=== PATIENT | male | born 1945 | race Caucasian/White ===

== ENCOUNTER → 2016-10-12 | Outpatient (RCR) | payer MEDICARE, OTHER ==
[2016-09-14 14:29] LABS: BILIRUBIN,URINE NEGATIVE (NEGATIVE); KETONES,URINE NEGATIVE (NEGATIVE); LEUKOCYTE ESTERASE ,URINE NEGATIVE (NEGATIVE); NITRITE,URINE NEGATIVE (NEGATIVE); PH,URINE 7 (5-9); PROTEIN,URINE NEGATIVE (NEGATIVE); UROBILINOGEN,URINE NORMAL (NORMAL)
[2016-09-14 14:42] LABS: SQUAMOUS EPITHELIAL CELL,UR 0-2 /HPF
[~2016-10-12] MED LIST: ASPI-983 PO; CHOL20003 PO; CITA-105 PO; CITA40TA11 PO; CLOB15OI2 TP; CYAN10007 PO; FERR-84 PO; FERR256T PO; HYDR-3820 PO; HYDR1TAB86 PO; IPRA4AER IH; LISI1TAB10 PO; MELO-195 PO; METF500T8 PO; MTF500T PO; OXYC-12 PO; PANT20TA2 PO; PANT40TA2 PO; TRAM50TA2 PO
== END | disposition home or self-care (01) ==
LOC: ONC 07-14 14:47
PROVIDERS: ATTEND Radiology Radiation Oncology
DX: Z51.0 Encounter for antineoplastic radiation therapy (principal); C61 Malignant neoplasm of prostate
CPT/HCPCS: 77300; 77301; 77307; 77334; 77336; 77338; 77385; 81000; 99214

== ENCOUNTER 2016-11-02 14:08 | Outpatient (RCR) | payer MEDICARE | END 2016-11-14 | disposition home or self-care (01) | LOC: ONC 14:08 | PROVIDERS: ATTEND Radiology Radiation Oncology | DX: Z51.0 Encounter for antineoplastic radiation therapy (principal); C61 Malignant neoplasm of prostate | CPT/HCPCS: 77336; 77385 ==

== ENCOUNTER → 2016-12-31 | Outpatient (CLI) | payer MEDICARE | LOC: EDSTATUS 11-15 15:31 → ONC 15:32 | PROVIDERS: ATTEND Radiology Radiation Oncology | DX: C61 Malignant neoplasm of prostate (principal) | CPT/HCPCS: 99213 ==

== ENCOUNTER → 2017-04-21 | Outpatient (CLI) | payer SELFPAY ==
[~2017-04-21] MED LIST changes: +GADOBUTROL 7.5 MMOL/7.5 ML (GADAVIST) VIAL IV ONE
[2017-04-21 09:32] LABS: CREATININE SERUM 1.2 MG/DL (0.60-1.30)
--- NOTE | 2017-04-21 11:51 | Diagnostic Imaging Report ---
PROCEDURE: MRI lumbar spine with and without contrast. TECHNIQUE: Multiplanar, multisequence MRI of the lumbar spine was performed with and without contrast. INDICATION: Prior lumbar spine surgery and prior T12 vertebral body fracture. Patient complains of continued low back pain. COMPARISON: Correlation is made with prior MRI from 05/05/2012. FINDINGS: Curvature of the lumbar spine is normal. Postsurgical changes are again noted with posterior instrumented fusion at T11 through L1 level. The fusion does transfix the T12 vertebral body fracture seen on prior MRI. No further loss of stature of the T12 vertebral body is seen. The remaining lumbar vertebrae demonstrate normal stature. There is a Schmorl's node involving the inferior endplate of the L3 vertebral body, new since prior MRI from 2012. There also is edema within the L3 vertebral body, new since prior exam. Features are suggestive of an acute Schmorl's node which may be contributing to the patient's pain. This does demonstrate some mild contrast enhancement. No other regions of abnormal enhancement are identified. The conus appears unremarkable at the L1 level. T12-L1: Disc/osteophyte complex is present but no significant central canal or neuroforaminal stenosis is seen. L1-L2: Central canal is widely patent. Neural foramina are moderately narrowed bilaterally. L2-L3: Central canal is patent. There is ligamentous thickening and facet changes present. No significant neuroforaminal narrowing is seen. L3-L4: Hypertrophic facet changes and ligamentous thickening is seen. There is broad-based disc/osteophyte complex present resulting in moderate bilateral neuroforaminal narrowing as well as bilateral lateral recess narrowing. L4-L5: There are hypertrophic facet changes present. The central canal remains patent. Broad-based disc/osteophyte complex narrows the lateral recesses bilaterally. Only mild neuroforaminal narrowing is present. L5-S1: Degenerative facet changes are present. Central canal is widely patent. The neural foramina are patent. IMPRESSION: 1. Treated T12 vertebral body fracture with posterior instrumented fusion from T11 to L1. No further loss of stature of the T12 vertebral body is seen. 2. Mild generalized spondylosis and facet arthropathy with mild multilevel lateral recess and neuroforaminal narrowing described level by level above. No significant central canal stenosis is seen. 3. Interval development of a Schmorl's node involving the inferior endplate of L3 vertebral body since the MRI from April 2012. There is some edema within the L3 vertebral body, likely owing to an acute Schmorl's node, which can produce pain. No other significant abnormality is identified. Dictated by: Dictated on workstation # [id number]
== END ==
LOC: RAD 08:21
DX: M48.061 Spinal stenosis, lumbar region without neurogenic claudication (principal); M47.27 Other spondylosis with radiculopathy, lumbosacral region; Z87.81 Personal history of (healed) traumatic fracture; Z98.1 Arthrodesis status
CPT/HCPCS: 36415; 72158; 82565; 84520

== ENCOUNTER → 2018-01-14 | Outpatient (CLI) | payer MEDICARE ==
[~2018-01-14] MED LIST changes: -GADOBUTROL 7.5 MMOL/7.5 ML (GADAVIST) VIAL IV ONE
--- NOTE | 2018-01-14 11:17 | Diagnostic Imaging Report ---
INDICATION: Cough x1 month. Shortness of breath x6 months.. TECHNIQUE: Two view chest 11:16 AM CORRELATION STUDY: None FINDINGS: The heart size, mediastinal configuration and pulmonary vasculature are within normal limits. The lungs are clear with no consolidating infiltrate. There is no significant pleural effusion or pneumothorax. Thoracolumbar spinal fixation hardware transfixing a compressed vertebral body again demonstrated. IMPRESSION: 1. No radiographic evidence for acute abnormality of the chest. Dictated by: Dictated on workstation # [id number]
== END ==
LOC: RAD 10:46
PROVIDERS: ATTEND Family Medicine
DX: R06.02 Shortness of breath (principal); R05 Cough; Z72.0 Tobacco use
CPT/HCPCS: 71046

== ENCOUNTER 2018-02-14 05:52 | Outpatient (CLI) | payer MEDICARE ==
[~2018-02-14] VITALS: Ht 168.9 cm; Wt 68.0 kg
[2018-02-14] MEDS ORDERED: TRAM50TA2 PO (13:47)
[2018-02-14] MEDS ORDERED: METF-397 PO (13:47)
[2018-02-14] MEDS ORDERED: LISI1TAB10 PO (13:47)
[2018-02-14] MEDS ORDERED: CYAN100021 PO (13:47)
== END 2018-02-14 13:49 | disposition home or self-care (01) ==
LOC: PREOP 05:52
PROVIDERS: ATTEND Surgery
DX: Z01.818 Encounter for other preprocedural examination (principal)

== ENCOUNTER 2018-02-21 08:23 | Day surgery (SDC) | payer MEDICARE ==
[~2018-02-21] VITALS: Ht 168.9 cm; Wt 68.0 kg
[~2018-02-21 08:23] MED LIST changes: +CYAN100021 PO; +METF-397 PO
[2018-02-21] MEDS ORDERED: NS IV 500 ML 500 ML ONE (08:31)
[2018-02-21] MEDS ORDERED: fentaNYL INJECTION 100 MCG/2 ML AMP ONE (08:37)
[2018-02-21] MEDS ORDERED: MIDAZOLAM 2 MG/2 ML (VERSED) VIAL ONE ×4 (08:37)
[2018-02-21] MEDS ORDERED: HURRICAINE EXT TUBE (BENZOCAINE) ONE (08:38)
[2018-02-21] MEDS ORDERED: NS IV 500 ML 500 ML IV PRN (08:47)
--- NOTE | 2018-02-21 08:50 | Conscious Sedation/ASA ---
Conscious Sedation Pre-Proced Time 08:50 ASA Score 2 For ASA 3 and 4: Consider anesthesia and medical clearance. Also, for patients with a history of failed moderate sedation consider anesthesia. Airway Lungs Heart ASA score ASA 1: a normal healthy patient ASA 2: a patient with a mild systemic disease (mid diabetes, controlled hypertension, obesity ASA 3: a patient with a severe systemic disease that limits activity (angina , COPD, prior Myocardial infarction) ASA 4: a patient with an incapacitating disease that is a constant threat to life (CHF, renal failure) ASA 5: a moribund patient not expected to survive 24 hrs. (ruptured aneurysm) ASA 6: a declared brain patient whose organs are being harvested. For emergent operations, add the letter E after the classification Mallampati Classification Grade 1 Sedation Plan Discussed options with patient/fam The patient is an appropriate candidate to undergo the planned procedure, sedation, and anesthesia. The patient immediately re-assessed prior to indication. AAMIR GARCIA MD Feb 21, 2018 08:50
--- NOTE | 2018-02-21 08:50 | History & Physicial ---
History of Present Illness History of Present Illness Reason for visit/HPI To undergo an upper endoscopy with possible balloon dilatation regarding nausea and dysphagia. Date of Admission 02/21/18 Date Seen by a Provider: Feb 21, 2018 Time Seen by a Provider: 08:48 I consulted on this patient on 02/21/18 08:48 Attending Physician Aamir Dumont MD Admitting Physician Renae Fatima MD Consult Allergies and Home Medications Allergies Coded Allergies: No Known Drug Allergies (Verified , 07/26/07) Home Medications Albuterol/Ipratropium 4 Gm Aero, 1 PUFF IH QID PRN for SHORTNESS OF BREATH, ( Reported) Aspirin 81 Mg Tablet.dr, 81 MG PO DAILY, (Reported) Cholecalciferol (Vitamin D3) 2,000 Unit Capsule, 2,000 UNIT PO DAILY, (Reported) Citalopram Hydrobromide 40 Mg Tablet, 20 MG PO HS, (Reported) TAKES 1/2 (40MG) TABLET Clobetasol Propionate 15 Gm Oint...g., TP BID PRN for DRY SKIN, (Reported) APPLY TO HANDS AND FEET Cyanocobalamin (Vitamin B-12) 1,000 Mcg/15 Ml Liquid, 1,000 MCG PO DAILY, ( Reported) Ferrous Sulfate 325 Mg Tablet, 325 MG PO DAILY, (Reported) Hydrocodone/Acetaminophen 1 Each Tablet, 1 TAB PO Q4H PRN for PAIN, (Reported) Lisinopril/Hydrochlorothiazide 1 Each Tablet, 1 EACH PO DAILY, (Reported) Metformin HCl 500 Mg Tablet, 500 MG PO DAILY, (Reported) Pantoprazole Sodium 40 Mg Tablet.dr, 40 MG PO BID, (Reported) Tramadol HCl 50 Mg Tablet, 50 MG PO QID PRN for PAIN-MILD, (Reported) Patient Home Medication List Home Medication List Reviewed: Yes Past Gawvwdm-Zcyhwe-Yufamb Hx Patient Social History Marrital Status: Employed/Student: retired Former Smoker, Quit: Feb 14, 2003 Type Used: Smokeless Tobacco Recent Foreign Travel: No Contact w/other who traveled: No Recent Hopitalizations: No Immunizations Up To Date Date of Pneumonia Vaccine: Nov 18, 2015 Date of Influenza Vaccine: Nov 17, 2017 Seasonal Allergies Seasonal Allergies: No Surgeries Yes (LEFT EYE CATARACT,APPY,IRENE,GASTRIC BYPASS 2004) Respiratory No Cardiovascular Yes Hypertension Neurological No Genitourinary No Gastrointestinal Yes (nausea/dysphagia/wt loss) Ulcer Musculoskeletal Yes (PAIN IN SHOULDERS) Chronic Back Pain Endocrine History of Endocrine Disorders: Yes Endocrine Disorders: Diabetes, Non-Insulin dep HEENT History of HEENT Disorders: No HEENT Disorders: Cataract Cancer No Prostate Psychosocial History of Psychiatric Problem: No Integumentary History of Skin or Integumenta: No Blood Transfusions History of Blood Disorders: No Review of Systems Constitutional: no symptoms reported EENTM: no symptoms reported Respiratory: no symptoms reported Cardiovascular: no symptoms reported Gastrointestinal: see HPI Genitourinary: no symptoms reported Musculoskeletal: joint pain Skin: no symptoms reported Psychiatric/Neurological: No Symptoms Reported Physical Exam Vital Signs Capillary Refill : Height, Weight, BMI Height: 5'6.50" Weight: 150lbs. 0.0oz. [id number]; 23.9 BMI Method:Stated General Appearance: No Apparent Distress Respiratory: Lungs Clear Cardiovascular: Regular Rate, Rhythm Gastrointestinal: Non Tender, Soft Neurologic/Psychiatric: Alert, Oriented x3 Skin: Warm/Dry Assessment/Plan Assessment and Plan Gentleman with nausea, weight loss and dysphagia. For upper endoscopy with possible balloon dilatation Admission Diagnosis Admission Status: Other (Outpt Proc) AAMIR DUMONT MD Feb 21, 2018 08:50
[2018-02-21] MEDS ORDERED: MIDAZOLAM 2 MG/2 ML (VERSED) VIAL IVP ONE (09:00)
[2018-02-21] MEDS ORDERED: HURRICAINE EXT TUBE (BENZOCAINE) XX PRN (09:00)
[2018-02-21] MEDS ORDERED: fentaNYL INJECTION 100 MCG/2 ML AMP IVP ONE (09:00)
[2018-02-21 09:03] VITALS: BP 134/64
--- NOTE | 2018-02-21 09:16 | Endo Procedure Record ---
Endo Procedure Report Date of Procedure Last Colonoscopy: Yes Feb 21, 2018 Surgeon (s) AAMIR GARCIA MD Post Procedure/Op Diagnosis Normal configuration of gastric bypass. No stricture Procedure Performed EGD with biopsy of gastric pouch for H. pylori Description of Procedure Anesthesia Type: Conscious Sedation Specimen(s) collected/removed Gastric mucosa Description of the Procedure Indication for the procedure: This gentleman had undergone gastric bypass to manage morbid obesity, about 12 years ago, achieving excellent results. He came in for an upper endoscopy to evaluate intermittent nausea and dysphagia. Informed consent was obtained after reviewing the procedure in detail. Description of the procedure: He was placed in left lateral decub disposition and his vital signs were monitored. Conscious sedation was achieved using Versed and fentanyl. The flexible gastroscope was introduced down the esophagus , past the gastric pouch into the jejunum here There was no abnormality; specifically, there was no anastomotic stricture. Due to symptoms, biopsy of the gastric pouch was obtained for H. pylori. He tolerated the procedure well and was taken back to the nursing area in a stable condition. Impression: Previous gastric bypass. No anatomic abnormalities identified. Copy Copies To 1: SUZANNE ROSADO MD, XAVIER M MD Feb 21, 2018 09:16
--- NOTE | 2018-02-21 09:18 | Discharge Inst-Simple/Standard ---
Discharge Inst-Standard Discharge Medications New, Converted or Re-Newed RX: Other Patient Instructions/Follow Up Plan of Care/Instructions/FU: Follow up with his primary Activity as Tolerated: Yes Discharge Diet: No Restrictions AAMIR GARCIA MD Feb 21, 2018 09:18
[2018-02-21 09:40] VITALS: BP 117/64
[2018-02-21 10:00] VITALS: BP 134/73
[2018-02-21 10:28] VITALS: BP 134/73
== END 2018-02-21 10:10 | disposition home or self-care (01) ==
LOC: ENDO 08:23
PROVIDERS: ATTEND Surgery
DX: R13.10 Dysphagia, unspecified (principal); R11.2 Nausea with vomiting, unspecified; E11.9 Type 2 diabetes mellitus without complications; I10 Essential (primary) hypertension; F17.200 Nicotine dependence, unspecified, uncomplicated; Z98.84 Bariatric surgery status; Z79.899 Other long term (current) drug therapy; Z85.46 Personal history of malignant neoplasm of prostate; Z79.82 Long term (current) use of aspirin; Z79.84 Long term (current) use of oral hypoglycemic drugs

== ENCOUNTER → 2020-10-01 | Outpatient (CLI) | payer MEDICARE, OTHER ==
[~2020-10-01] MED LIST changes: +ACHYD1T PO; +ASPI-1238 PO; -ASPI-983 PO; -HYDR-3820 PO; +LISI1TAB26 PO; +METF-865 PO; -METF500T8 PO; +TRM50T PO
--- NOTE | 2020-10-01 12:48 | Diagnostic Imaging Report ---
EXAMINATION: Chest 2 view HISTORY: SOB POST COVID 19 COMPARISON: 01/14/2018 FINDINGS: Heart size and pulmonary vasculature are normal. The lungs are clear without consolidation, pleural effusion, or pneumothorax. Surgical changes from spinal fusion. There are calcifications of the aorta. IMPRESSION: 1. No acute radiographic abnormality in the chest. Dictated by: Dictated on workstation # [id number]
== END ==
LOC: RAD 11:42
PROVIDERS: ATTEND Family Medicine
DX: R06.02 Shortness of breath (principal); Z86.16 Personal history of COVID-19
CPT/HCPCS: 71046

== ENCOUNTER 2020-10-26 18:48 | Emergency (ER) | payer MEDICARE, OTHER ==
[~2020-10-26] VITALS: Ht 169 cm; Wt 68.0 kg
[2020-10-26 19:39] LABS: BASOPHILS # (AUTO) 0.1 10^3/uL (0.0-0.1); BASOPHILS % (AUTO) 1 % (0-10); EOSINOPHILS # (AUTO) 0.2 10^3/uL (0.0-0.3); EOSINOPHILS % (AUTO) 2 % (0-10); HEMATOCRIT 41 % (40-54); HEMOGLOBIN 13.4 g/dL (13.3-17.7); LYMPHOCYTES # (AUTO) 1.5 10^3/uL (1.0-4.0); LYMPHOCYTES % (AUTO) 19 % (12-44); MEAN CORPUSCULAR HEMOGLOBIN 29 pg (25-34); MEAN CORPUSCULAR HGB CONC 33 g/dL (32-36); MEAN CORPUSCULAR VOLUME 90 fL (80-99); MEAN PLATELET VOLUME 11.6 fL (9.0-12.2); MONOCYTES # (AUTO) 0.9 10^3/uL (0.0-1.0); MONOCYTES % (AUTO) 11 % (0-12); NEUTROPHILS # (AUTO) 5.3 10^3/uL (1.8-7.8); NEUTROPHILS % (AUTO) 66 % (42-75); PLATELET COUNT 296 10^3/uL (130-400)
--- NOTE | 2020-10-26 19:47 | Diagnostic Imaging Report ---
EXAMINATION: CT head without contrast. TECHNIQUE: Multiple contiguous axial images were obtained through the brain without the use of intravenous contrast. All CT scans use one or more of the following dose optimizing techniques: automated exposure control, MA and/or KvP adjustment based on patient size and exam type or iterative reconstruction. HISTORY: Right-sided facial pain. Right facial droop. Concern for STROKE. COMPARISON: None available. FINDINGS: No large acute territorial ischemia, mass or hemorrhage. No midline shift or mass effect. The ventricles, cortical sulci and basilar cisterns are patent and unremarkable. The orbits are normal. Paranasal sinuses are normal. Mastoid air cells are clear. No soft tissue abnormality is seen. No osseus lesion or fracture is seen. IMPRESSION: No large acute territorial ischemia, mass or hemorrhage. Dictated by: Dictated on workstation # [id number]
[2020-10-26 19:54] LABS: ERYTHROCYTE SEDIMENTATION RATE 14 MM/HR (0-30)
--- NOTE | 2020-10-26 19:54 | ED Neurological Problem ---
General Chief Complaint: Facial Problems Stated Complaint: R SIDED FACIAL PAIN Nursing Triage Note: Patient ambulatory to ER with c/o right facial pain and unable to close the right eye x 3 days. Patient describes pain as constant and dull. He does have drooping to the right side of mouth. Pupils are equal. Source: patient, old records Exam Limitations: no limitations History of Present Illness Date Seen by Provider: Oct 26, 2020 Time Seen by Provider: 19:05 Initial Comments This 74-year-old gentleman presents to the emergency room with primary complaint of right-sided facial headache that radiates from the temporal region down around the ear toward the lower occiput and superior neck as well as inability to completely close his right eye. He was out mowing 3 acres today and came into eat supper and drink a few beers when he noticed the facial weakness between 1529 and 1629. He has had some discomfort on the right side of his face for a few days. 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 He denies any numbness or weakness of any other body part. Vision appears unaffected. He appears to have some subtle weakness of the right forehead and loss of wrinkles on the right lateral and upper forehead. Allergies and Home Medications Allergies Coded Allergies: No Known Drug Allergies (Verified , 07/26/07) Patient Home Medication List Home Medication List Reviewed: Yes Albuterol/Ipratropium (Combivent Respimat Inhal Oneill) 4 Gm Aero, 1 PUFF IH QID PRN for SHORTNESS OF BREATH, (Reported) Entered as Reported by: JOHNNA DUFFY on 01/29/16928 Aspirin (Aspirin EC) 81 Mg Tablet.dr, 81 MG PO DAILY, (Reported) Entered as Reported by: JOHNNA DUFFY on 01/29/16928 Cholecalciferol (Vitamin D3) (Vitamin D3) 2,000 Unit Capsule, 2,000 UNIT PO DAILY, (Reported) Entered as Reported by: JOHNNA DUFFY on 01/29/16928 Citalopram Hydrobromide (Citalopram HBr) 40 Mg Tablet, 20 MG PO HS, (Reported) Entered as Reported by: JOHNNA DUFFY on 01/29/16928 Clobetasol Propionate (Clobetasol Propionate) 15 Gm Oint...g., TP BID PRN for DRY SKIN, (Reported) Entered as Reported by: JOHNNA DUFFY on 01/29/16928 Cyanocobalamin (Vitamin B-12) (Liquid B12) 1,000 Mcg/15 Ml Liquid, 1,000 MCG PO DAILY, (Reported) Entered as Reported by: ASA PARKER on 02/14/181346 Ferrous Sulfate (Iron) 325 Mg Tablet, 325 MG PO DAILY, (Reported) Entered as Reported by: JOHNNA DUFFY on 01/29/16928 Gabapentin (Neurontin) 300 Mg Capsule, 300 MG PO TID Prescribed by: MORGAN LINDO on 10/26/202043 Hydrocodone Bit/Acetaminophen (HYDROcodone/APAP 10/325 TABLET) 1 Each Tablet, 1 TAB PO Q4H PRN for PAIN, (Reported) Entered as Reported by: JOHNNA DUFFY on 01/29/16928 Lisinopril/Hydrochlorothiazide (Lisinopril-Hctz 20-25 mg Tab) 1 Each Tablet, 1 EACH PO DAILY, (Reported) Entered as Reported by: ASA PARKER on 02/14/181346 Metformin HCl (Metformin HCl) 500 Mg Tablet, 500 MG PO DAILY, (Reported) Entered as Reported by: ASA PARKER on 02/14/181346 Pantoprazole Sodium (Protonix) 40 Mg Tablet.dr, 40 MG PO BID, (Reported) Entered as Reported by: JOHNNA DUFFY on 01/29/16928 Prednisone (Prednisone) 20 Mg Tab, 40 MG PO DAILY Prescribed by: MORGAN LINDO on 10/26/202043 Tramadol HCl (Tramadol HCl) 50 Mg Tablet, 50 MG PO QID PRN for PAIN-MILD, (Reported) Entered as Reported by: ASA PARKER on 02/14/181346 Valacyclovir HCl (Valacyclovir) 1,000 Mg Tablet, 1,000 MG PO TID Prescribed by: MORGAN LINDO on 10/26/202043 Review of Systems Review of Systems Constitutional: no symptoms reported Eyes: See HPI Ears, Nose, Mouth, Throat: no symptoms reported Respiratory: no symptoms reported Cardiovascular: no symptoms reported Gastrointestinal: no symptoms reported Genitourinary: no symptoms reported Musculoskeletal: no symptoms reported Skin: no symptoms reported Psychiatric/Neurological: See HPI Endocrine: No Symptoms Reported Hematologic/Lymphatic: No Symptoms Reported Past Pqfksxh-Movwpr-Iacvqn Hx Patient Social History Tobacco Use?: No Smoking Status: Former Smoker Smokeless Tobacco Frequency: Never a User Use of E-Cig and/or Vaping dev: No Use of E-Cig and/or Vaping Brady: Never a User Substance use?: No Alcohol Use?: Yes Alcohol type: Beer Pt feels they are or have been: No Seasonal Allergies Seasonal Allergies: No Past Medical History Surgery/Hospitalization HX: History of back surgery and gastric bypass, takes medications Diabetes, HTN, and depression Surgeries: Yes (LEFT EYE CATARACT,APPY,IRENE,GASTRIC BYPASS 2004) Abdominal (Gastric bypass), Cardiac (Cardiac cath 2015 without intervention), Orthopedic (Back surgery) Respiratory: No Cardiac: Yes Coronary Artery Disease (Mild disease by cath 2015), Hypertension Neurological: Yes (Remote history of Trotter's palsy which he believes was on the left) Genitourinary: No Gastrointestinal: Yes (nausea/dysphagia/wt loss) Ulcer Musculoskeletal: Yes (PAIN IN SHOULDERS) Chronic Back Pain Endocrine: Yes Diabetes, Non-Insulin dep HEENT: Yes Cataract Cancer: Yes Prostate Psychosocial: No Integumentary: No Blood Disorders: No Physical Exam Vital Signs Vital Signs - First Documented 10/26/20 18:52 Temp 36.2 Pulse 79 Resp 16 B/P (MAP) 137/67 (90) Pulse Ox 95 O2 Delivery Room Air Capillary Refill : Less Than 3 Seconds Height, Weight, BMI Height: 5'6.50" Weight: 150lbs. 0.0oz. 68.267570ug; 23.00 BMI Method:Stated General Appearance: WD/WN, no apparent distress HEENT: PERRL/EOMI, normal ENT inspection, TMs normal, other (Mild tenderness of the right face in the temporal region. No mastoid tenderness. No swelling or erythema noted. Temporal arteries are palpable and equal bilaterally with no significant tenderness focally over the artery) Neck: normal inspection Respiratory: lungs clear, normal breath sounds, no respiratory distress Cardiovascular: regular rate, rhythm, no edema, no murmur Gastrointestinal: soft; No distended Extremities: normal inspection Neurologic/Psychiatric: alert, normal mood/affect, oriented x 3 Crainal Nerves: normal hearing, normal speech, PERRL, facial droop (Right side including weakness and loss of wrinkles in the right forehead) Coordination/Gait: normal finger to nose, normal gait Motor/Sensory: no sensory deficit Skin: normal color, warm/dry Progress/Results/Core Measures Results/Orders Lab Results Laboratory Tests Test 10/26/20 18:57 Range/Units White Blood Count 8.0 4.3-11.0 10^3/uL Red Blood Count 4.56 4.30-5.52 10^6/uL Hemoglobin 13.4 13.3-17.7 g/dL Hematocrit 41 40-54 % Mean Corpuscular Volume 90 80-99 fL Mean Corpuscular Hemoglobin 29 25-34 pg Mean Corpuscular Hemoglobin Concent 33 32-36 g/dL Red Cell Distribution Width 13.9 10.0-14.5 % Platelet Count 296 130-400 10^3/uL Mean Platelet Volume 11.6 9.0-12.2 fL Immature Granulocyte % (Auto) 0 % Neutrophils (%) (Auto) 66 42-75 % Lymphocytes (%) (Auto) 19 12-44 % Monocytes (%) (Auto) 11 0-12 % Eosinophils (%) (Auto) 2 0-10 % Basophils (%) (Auto) 1 0-10 % Neutrophils # (Auto) 5.3 1.8-7.8 10^3/uL Lymphocytes # (Auto) 1.5 1.0-4.0 10^3/uL Monocytes # (Auto) 0.9 0.0-1.0 10^3/uL Eosinophils # (Auto) 0.2 0.0-0.3 10^3/uL Basophils # (Auto) 0.1 0.0-0.1 10^3/uL Immature Granulocyte # (Auto) 0.0 0.0-0.1 10^3/uL Erythrocyte Sedimentation Rate 14 0-30 MM/HR Sodium Level 141 135-145 MMOL/L Potassium Level 3.4 L 3.6-5.0 MMOL/L Chloride Level 104 98-107 MMOL/L Carbon Dioxide Level 22 21-32 MMOL/L Anion Gap 15 H 5-14 MMOL/L Blood Urea Nitrogen 21 H 7-18 MG/DL Creatinine 1.34 H 0.60-1.30 MG/DL Estimat Glomerular Filtration Rate 52 BUN/Creatinine Ratio 16 Glucose Level 93 70-105 MG/DL Calcium Level 9.5 8.5-10.1 MG/DL Corrected Calcium 9.5 8.5-10.1 MG/DL Total Bilirubin 0.3 0.1-1.0 MG/DL Aspartate Amino Transf (AST/SGOT) 11 5-34 U/L Alanine Aminotransferase (ALT/SGPT) 10 0-55 U/L Alkaline Phosphatase 74 40-136 U/L C-Reactive Protein High Sensitivity 0.11 0.00-0.50 MG/DL Total Protein 6.6 6.4-8.2 GM/DL Albumin 4.0 3.2-4.5 GM/DL Serum Alcohol < 10 <10 MG/DL My Orders Orders - MORGAN CLIFTON MD Ct Head Wo-R/O Stroke (10/26/20 19:32) Alcohol (10/26/20 19:32) Cbc With Automated Diff (10/26/20 19:32) Hs C Reactive Protein (10/26/20 19:32) Erythrocyte Sedimentation Rate (10/26/20 19:32) Ed Iv/Invasive Line Start (10/26/20 19:32) Comprehensive Metabolic Panel (10/26/20 20:04) Prednisone Tablet (Deltasone Tablet) (10/26/20 20:45) Acyclovir Capsule/Tablet (Zovirax Caps (10/26/20 20:37) Gabapentin Capsule/Tablet (Neurontin Cap (10/26/20 20:45) Medications Given in ED Current Medications Medications Dose Ordered Sig/Yvonne Route Start Time Stop Time Status Last Admin Dose Admin Gabapentin 300 mg ONCE ONCE PO 10/26/20 20:45 10/26/20 20:46 DC 10/26/20 20:50 300 MG Prednisone 40 mg ONCE ONCE PO 10/26/20 20:45 10/26/20 20:46 DC 10/26/20 20:48 40 MG Vital Signs/I&O 10/26/20 18:52 Temp 36.2 Pulse 79 Resp 16 B/P (MAP) 137/67 (90) Pulse Ox 95 O2 Delivery Room Air Blood Pressure Mean: 90 Progress Progress Note #1: Time: 19:55 Progress Note Patient was seen and examined. Symptoms seem most consistent with a Trotter's palsy, especially with apparent weakness and loss of wrinkles on the right forehead. However, there is a pain associated with this on the right side. We will investigate further with basic labs including ESR as well as CT scan of the head. I anticipate treating for Trotter's palsy. Progress Note #2: Time: 20:54 Progress Note Work-up was relatively unremarkable. Presentation is convincing for Trotter's palsy. I discussed risks of prednisone therapy. I am prescribing 40 mg a day with the first dose being given in the ER. I am also prescribing acyclovir. Patient is to watch his blood sugars closely while on prednisone. We discussed ice safety associated with Trotter's palsy. See discharge instructions for further discussion. Diagnostic Imaging Diagonstic Imaging: CT Plain Films/CT/US/NM/MRI: head Comments CT head viewed by me and report reviewed. See report below: NAME: ANA MARIA POTTER [facility] REC#: [id number] PT STATUS: REG ER : 1945 PHYSICIAN: MORGAN CLIFTON MD ADMIT DATE: 10/26/20/ER Signed Date of Exam:10/26/20 CT HEAD WO-R/O STROKE EXAMINATION: CT head without contrast. TECHNIQUE: Multiple contiguous axial images were obtained through the brain without the use of intravenous contrast. All CT scans use one or more of the following dose optimizing techniques: automated exposure control, MA and/or KvP adjustment based on patient size and exam type or iterative reconstruction. HISTORY: Right-sided facial pain. Right facial droop. Concern for STROKE. COMPARISON: None available. FINDINGS: No large acute territorial ischemia, mass or hemorrhage. No midline shift or mass effect. The ventricles, cortical sulci and basilar cisterns are patent and unremarkable. The orbits are normal. Paranasal sinuses are normal. Mastoid air cells are clear. No soft tissue abnormality is seen. No osseus lesion or fracture is seen. IMPRESSION: No large acute territorial ischemia, mass or hemorrhage. Dictated by: Dictated on workstation # [id number] Dict: 10/26/201942 Trans: 10/26/201947 [facility] [id number] Interpreted by: TAB CAI DO Electronically signed by: TAB CAI DO 10/26/201947 Departure Impression Primary Impression: Trotter's palsy Additional Impression: Right-sided headache Disposition: 01 HOME, SELF-CARE Condition: Stable Departure-Patient Inst. Decision time for Depature: 20:42 Referrals: SUZANNE ROSADO MD (PCP/Family) Primary Care Physician Patient Instructions: Trotter's Palsy Add. Discharge Instructions: Your symptoms are likely related to Trotter's palsy. Use your prednisone steroids as prescribed. Take them early in the day to avoid sleep disturbance. Take with food or milk to avoid stomach irritation. You should monitor your blood sugars 2 or 3 times a day while on prednisone to ensure the prednisone is not causing significant hyperglycemia. If you have recurrent blood sugars greater than 250, please call your primary care provider and hold any further doses of steroids until you talk with your doctor. Eat a diet very low in sugars and carbohydrates while on the prednisone. Complete the entire course of valacyclovir (antiviral). Eat and drink very carefully and avoid eating or drinking hot substances that may burn your mouth as you may have tongue, lip, and cheek numbness or weakness. Please protect your eyes by wearing eyewear, sunglasses, safety glasses, etc. especially when in windy environments, marylu environments, bright sunlight, etc. Use artificial tears liberally to moisten your eye. You may need to tape your eye shut at night to avoid accidentally injuring your eye in the night. Please follow-up with your primary care provider next week for repeat evaluation. Drink plenty of clear liquids to stay well-hydrated. Call with questions or concerns. Return to the ER if you have worsening symptoms or if you develop neurologic symptoms not associated with Trotter's palsy such as numbness or weakness of an arm or leg, confusion, etc. You may use your usual prescribed medications for pain. You may add gabapentin as prescribed if your other medications are insufficient. Please be advised that gabapentin may cause drowsiness. Use with caution. All discharge instructions reviewed with patient and/or family. Voiced understanding. Scripts Gabapentin (Neurontin) 300 Mg Capsule 300 MG PO TID, #20 CAP Prov: MORGAN CLIFTON MD 10/26/20 Prednisone (Prednisone) 20 Mg Tab 40 MG PO DAILY, #14 TAB Prov: MORGAN CLIFTON MD 10/26/20 Valacyclovir HCl (Valacyclovir) 1,000 Mg Tablet 1000 MG PO TID, #20 TAB Prov: MORGAN CLIFTON MD 10/26/20 Copy Copies To 1: SUZANNE ROSADO MD, JOSHUA T MD Oct 26, 2020 19:54
[2020-10-26 20:22] LABS: BILIRUBIN,TOTAL 0.3 MG/DL (0.1-1.0); CALCIUM 9.5 MG/DL (8.5-10.1); CREATININE SERUM 1.34 MG/DL (0.60-1.30); POTASSIUM 3.4 MMOL/L (3.6-5.0); TOTAL PROTEIN 6.6 GM/DL (6.4-8.2)
[2020-10-26] MEDS ORDERED: ACYCLOVIR 400 MG TABLET (ZOVIRAX) PO STA (20:37)
[2020-10-26] MEDS ORDERED: PRD20T PO (20:44)
[2020-10-26] MEDS ORDERED: VALA10007 PO (20:44)
[2020-10-26] MEDS ORDERED: GABA300C PO (20:44)
[2020-10-26] MEDS ORDERED: GABAPENTIN 300 MG (NEURONTIN) CAP PO ONE (20:45)
[2020-10-26] MEDS ORDERED: predniSONE 20 MG TAB PO ONE (20:45)
[2020-10-26 20:55] VITALS: BP 128/69
== END 2020-10-26 20:57 | disposition home or self-care (01) ==
LOC: EDUNIT# 18:48 → ER 18:50
DX: G51.0 Bell's palsy (principal); I10 Essential (primary) hypertension; E11.9 Type 2 diabetes mellitus without complications; G89.29 Other chronic pain; M54.9 Dorsalgia, unspecified; F32.9 Major depressive disorder, single episode, unspecified; Z87.891 Personal history of nicotine dependence; Z79.82 Long term (current) use of aspirin; Z79.52 Long term (current) use of systemic steroids; Z79.84 Long term (current) use of oral hypoglycemic drugs; Z79.891 Long term (current) use of opiate analgesic; Z79.899 Other long term (current) drug therapy
CPT/HCPCS: 70450; 80053; 85025; 85652; 86141; 99284; G0480; 36415; 80320

== ENCOUNTER → 2021-02-26 | Outpatient (CLI) | payer MEDICARE ==
[~2021-02-26] MED LIST changes: -CITA40TA11 PO; +CITA40TA13 PO; +GABA300C PO; +GADOTERATE 0.5 MMOL/ML (CLARISCAN) 15 ML VIAL IV ONE; -LISI1TAB26 PO; +LISI1TAB48 PO; +PRD20T PO; +VALA10007 PO
--- NOTE | 2021-02-26 11:10 | Diagnostic Imaging Report ---
PROCEDURE: MR imaging of the brain with and without contrast. TECHNIQUE: Multiplanar, multisequence MR imaging of the brain was performed with and without contrast. INDICATION: Shakiness for the past 2 weeks. No prior studies are available for comparison. Ventricles and sulci are appropriate for the patient's age. There is no sulcal effacement or midline shift. No diffusion restriction is identified. The normal expected flow-voids within the carotid siphons are seen. No acute intra-axial or extra-axial hemorrhage is detected. Postcontrast portion of the study shows no abnormal enhancement. The corpus callosum is unremarkable. The sella and parasellar structures are unremarkable. IMPRESSION: Unremarkable pre and postcontrast MRI of the brain. Dictated by: Dictated on workstation # [id number]
== END ==
LOC: RAD 10:15
PROVIDERS: ATTEND Nurse Practitioner Family
DX: R25.1 Tremor, unspecified (principal)
CPT/HCPCS: 70553

== ENCOUNTER → 2021-03-18 | Outpatient (CLI) | payer MEDICARE ==
[~2021-03-18] MED LIST changes: -GADOTERATE 0.5 MMOL/ML (CLARISCAN) 15 ML VIAL IV ONE
[2021-03-18 15:08] LABS: ABSOLUTE RETIC # 87 10e9/uL (24-90); BASOPHILS # (AUTO) 0.1 10^3/uL (0.0-0.1); BASOPHILS % (AUTO) 0 % (0-10); EOSINOPHILS # (AUTO) 0.1 10^3/uL (0.0-0.3); EOSINOPHILS % (AUTO) 1 % (0-10); HEMATOCRIT 39 % (40-54); HEMOGLOBIN 12.8 g/dL (13.3-17.7); LYMPHOCYTES # (AUTO) 1.3 10^3/uL (1.0-4.0); LYMPHOCYTES % (AUTO) 10 % (12-44); MEAN CORPUSCULAR HEMOGLOBIN 29 pg (25-34); MEAN CORPUSCULAR HGB CONC 33 g/dL (32-36); MEAN CORPUSCULAR VOLUME 89 fL (80-99); MEAN PLATELET VOLUME 10.8 fL (9.0-12.2); MONOCYTES # (AUTO) 1.2 10^3/uL (0.0-1.0); MONOCYTES % (AUTO) 10 % (0-12); NEUTROPHILS # (AUTO) 9.3 10^3/uL (1.8-7.8); NEUTROPHILS % (AUTO) 77 % (42-75); PLATELET COUNT 371 10^3/uL (130-400); RETICULOCYTE % 1.97 % (0.50-2.40); WHITE BLOOD COUNT 12.1 10^3/uL (4.3-11.0)
[2021-03-18 15:51] LABS: EOSINOPHILS % (MANUAL) 1 %; LYMPHOCYTES % (MANUAL) 13 %; MONOCYTES % (MANUAL) 8 %; NEUTROPHILS % (MANUAL) 78 %; RBC MORPH NORMAL
== END ==
LOC: LAB 14:26
PROVIDERS: ATTEND Nurse Practitioner Family
DX: G71.19 Other specified myotonic disorders (principal)
CPT/HCPCS: 36415; 85007; 85027; 85045; 85055

== ENCOUNTER → 2021-04-01 | Outpatient (CLI) | payer MEDICARE ==
--- NOTE | 2021-04-01 11:57 | Diagnostic Imaging Report ---
EXAMINATION: CT chest without contrast. TECHNIQUE: Multiple contiguous axial images were obtained through the chest without the use of intravenous contrast. All CT scans use one or more of the following dose optimizing techniques: automated exposure control, MA and/or KvP adjustment based on patient size and exam type or iterative reconstruction. HISTORY: Elevated white blood cell count. COMPARISON: None available. FINDINGS: There is no edema or pneumonia. No pleural effusion. No pneumothorax. No suspicious nodules. There is no axillary or supraclavicular lymphadenopathy. There is no mediastinal lymphadenopathy. Heart size is normal. There are moderate coronary artery calcifications. No pericardial effusion. Aorta is normal in caliber. Limited views of the upper abdomen show changes of cholecystectomy. There are no suspicious osseous lesions. There has been instrumented posterior thoracic fusion for management of a lower thoracic compression fracture. IMPRESSION: 1. No acute abnormality in the chest. Dictated by: Dictated on workstation # [id number]
--- NOTE | 2021-04-01 12:37 | Diagnostic Imaging Report ---
PROCEDURE: US Thyroid. TECHNIQUE: Multiple real-time grayscale images were obtained of the thyroid in various projections. INDICATION: Low thyroid stimulating hormone COMPARISON: None available. FINDINGS: The right lobe of thyroid gland measures 3.9 x 1.4 x 1.4 cm. It maintains a homogeneous echotexture without discrete suspicious nodule. Tiny 0.3 cm cystic nodules within the superior pole of the right thyroid lobe without suspicious characteristics. The left lobe of thyroid gland measures 4.3 x 1.3 x 1.4 cm. It maintains a homogeneous echotexture without discrete nodule. Isthmus is unremarkable. IMPRESSION: Tiny 0.3 cm not suspicious right thyroid nodule for which no further follow-up is indicated based upon imaging characteristics. Otherwise, unremarkable exam. Dictated by: Dictated on workstation # [id number]
== END ==
LOC: RAD 11:00
PROVIDERS: ATTEND Nurse Practitioner Family
DX: D72.829 Elevated white blood cell count, unspecified (principal); G71.19 Other specified myotonic disorders; E03.9 Hypothyroidism, unspecified; M62.838 Other muscle spasm; Z72.0 Tobacco use
CPT/HCPCS: 71250; 76536

== ENCOUNTER → 2021-05-21 | Outpatient (CLI) | payer MEDICARE ==
--- NOTE | 2021-05-21 12:39 | Diagnostic Imaging Report ---
INDICATION: Abdominal pain. TIME OF EXAM: 12:19 PM FINDINGS: No free air is identified. Bowel gas pattern appears nonobstructed. There are surgical clips in the gallbladder fossa. There are postoperative changes of the upper lumbar spine. No pathologic calcifications are seen. IMPRESSION: No acute abnormalities detected. Dictated by: Dictated on workstation # [id number]
== END ==
LOC: RAD 12:04
PROVIDERS: ATTEND Nurse Practitioner Family
DX: R10.9 Unspecified abdominal pain (principal)
CPT/HCPCS: 74019

== ENCOUNTER → 2021-05-29 | Outpatient (CLI) | payer MEDICARE ==
[~2021-05-29] MED LIST changes: +CATHETER FLUSH 10 ML SYR IV PRN; +HOLD METFORMIN - RECEIVED CONTRAST 20 ML VIAL IV SCH; +IOHEXOL 350 MG/ML 100 ML (OMNIPAQUE 350) VIAL IV ONE; +NS 100 ML (IVPB) BAG IV ONE
[2021-05-29 12:29] LABS: CREATININE SERUM 1.48 MG/DL (0.60-1.30)
--- NOTE | 2021-05-29 13:44 | Diagnostic Imaging Report ---
PROCEDURE: CT abdomen and pelvis with contrast. TECHNIQUE: Multiple contiguous axial images were obtained through the abdomen and pelvis after administration of intravenous contrast. Auto Exposure Controls were utilized during the CT exam to meet ALARA standards for radiation dose reduction. All CT scans use one or more of the following dose optimizing techniques: Automated exposure control, MA and/or KvP adjustment based on patient size and exam type or iterative reconstruction. INDICATION: Upper abdominal hernia. COMPARISON: No prior studies are available for comparison. FINDINGS: The lung bases are clear. There is some diastasis of the rectus abdominis musculature as well as some atrophy of the left rectus muscle. There appears to be laxity of the midline anterior abdominal wall. A portion of the transverse colon does protrude into the area of laxity in the upper midline abdomen. It is uncertain if there is a true defect at this location versus laxity. Bowel loops are without evidence of strangulation or obstruction. More inferiorly, there is a right paramidline ventral hernia containing a knuckle of small bowel loop. No other abdominal wall defects are detected. No focal liver mass is identified. The gallbladder is surgically absent. There is no biliary ductal dilatation. The pancreas and spleen are unremarkable. No adrenal mass is detected. Kidneys are unremarkable. There is no hydronephrosis. The aorta is heavily calcified but nonaneurysmal. There is no free fluid or fluid collection. The bladder is decompressed. Prostate contains multiple radiation seed implants. Bony structures demonstrate postop changes of posterior instrumented fusion of the lower thoracic and upper lumbar spine. IMPRESSION: 1. Midline upper abdominal wall laxity with transverse colonic protuberance, as described above. More inferiorly, there is a right paramidline ventral hernia containing a small bowel loop. There is no evidence of strangulation or bowel obstruction. No acute feature is detected. Dictated by: Dictated on workstation # [id number]
== END ==
LOC: RAD 12:45
PROVIDERS: ATTEND Nurse Practitioner Family
DX: K43.9 Ventral hernia without obstruction or gangrene (principal); G71.19 Other specified myotonic disorders; R25.3 Fasciculation
CPT/HCPCS: 36415; 74177; 82565; 84520